=== PATIENT | male | born 1955 | race Caucasian/White ===

== ENCOUNTER 2017-11-04 20:46 | Emergency (ER) | payer MEDICAID ==
[~2017-11-04] VITALS: Ht 188 cm; Wt 84.1 kg
[2017-11-04 21:01] VITALS: BP 142/97
[2017-11-04] MEDS ORDERED: ASPI-12 PO (21:19)
[2017-11-04 21:24] LABS: BASOPHILS % (AUTO) 0.2 % (0-1); EOSINOPHILS # (AUTO) 0.2 X10'3 (0-0.9); EOSINOPHILS % (AUTO) 1.4 % (0-6); HEMOGLOBIN 14.7 g/dl (14.0-17.9); LYMPHOCYTES # (AUTO) 1.1 X10'3 (1.1-4.8); LYMPHOCYTES % (AUTO) 8.1 % (21-51); MEAN CORPUSCULAR HEMOGLOBIN 31.2 PG (27.0-31.0); MEAN CORPUSCULAR HGB CONC 34.1 % (33.0-36.5); MEAN CORPUSCULAR VOLUME 91.7 FL (78-98); MEAN PLATELET VOLUME 8.7 FL (7.4-10.4); MONOCYTES # (AUTO) 0.7 X10'3 (0-0.9); MONOCYTES % (AUTO) 4.8 % (2-12); NEUTROPHILS # (AUTO) 11.7 X10'3 (1.8-7.7); NEUTROPHILS % (AUTO) 85.5 % (42-75); PLATELET COUNT 234 X10'3 (140-440); RED BLOOD COUNT 4.69 X10'6 (4.70-6.10); RED CELL DISTRIBUTION WIDTH 14.4 % (11.5-14.5); WHITE BLOOD COUNT 13.7 X10'3 (4.5-11.0)
[2017-11-04 21:34] LABS: PROTHROMBIN TIME 10.2 SECONDS (9.0-12.0)
[2017-11-04 21:39] LABS: ALANINE AMINOTRANSFERASE 19 U/L (12-78); ALBUMIN 3.8 G/DL (3.4-5.0); ALBUMIN/GLOBULIN RATIO 1.1 (1.1-1.5); ALKALINE PHOSPHATASE 67 IU/L (46-116); ANION GAP 12 (8-16); ASPARTATE AMINO TRANSFERASE 13 U/L (10-37); BILIRUBIN,TOTAL 0.2 MG/DL (0.1-1.0); BLOOD UREA NITROGEN 20 MG/DL (7-18); BUN/CREATININE RATIO 16.7 (5.4-32.0); CHLORIDE 107 MMOL/L (99-107); GLUCOSE 127 MG/DL (70-104); POTASSIUM 3.7 MMOL/L (3.5-5.1); SODIUM 142 MMOL/L (135-145); TOTAL CARBON DIOXIDE 23.3 MMOL/L (24-32); TOTAL PROTEIN 7.4 G/DL (6.4-8.2); eGFR 62 ML/MIN
[2017-11-04 21:52] LABS: CLARITY,URINE TURBID (Clear); GLUCOSE, URINE NEGATIVE (Neg); KETONES,URINE NEGATIVE (Neg); LEUKOCYTE ESTERASE ,URINE TRACE (Neg); NITRITES, URINE POSITIVE (Neg); OCCULT BLOOD,URINE LARGE (Neg); PROTEIN,URINE 100 mg/dl (Neg)
[2017-11-04 22:01] LABS: COLOR,URINE DARK YELLOW (Yellow); UA COLLECTION TYPE CLN CATCH MIDSTREAM
[2017-11-04 22:09] LABS: BACTERIA,URINE 3+ /HPF (Neg); RBC,URINE TNTC /HPF (0-2); SQUAMOUS EPITHELIAL CELL,UR FEW /LPF (FEW)
[2017-11-04] MEDS ORDERED: CEPH500C2 PO (22:25)
== END 2017-11-04 22:35 | disposition home or self-care (01) ==
LOC: ER 20:47
DX: N39.0 Urinary tract infection, site not specified (principal); Z90.89 Acquired absence of other organs; Z88.0 Allergy status to penicillin; Z79.82 Long term (current) use of aspirin; Z79.899 Other long term (current) drug therapy
CPT/HCPCS: 36415; 80053; 81001; 85025; 85610; 87077; 87088; 87186; 99284

== ENCOUNTER 2017-11-14 18:15 | Emergency (ER) | payer MEDICAID ==
[~2017-11-14] VITALS: Ht 188 cm; Wt 77.3 kg
[~2017-11-14 18:15] MED LIST: ASPI-12 PO; CEPH500C2 PO
[2017-11-14 19:12] LABS: CLARITY,URINE CLOUDY (Clear); COLOR,URINE BROWN (Yellow)
[2017-11-14 19:21] LABS: UA COLLECTION TYPE CLN CATCH MIDSTREAM
[2017-11-14 19:24] LABS: BACTERIA,URINE FEW /HPF (Neg); MUCUS STRANDS MODERATE /LPF (Neg); RBC,URINE TNTC /HPF (0-2); SQUAMOUS EPITHELIAL CELL,UR FEW /LPF (FEW); WBC,URINE 20-30 /HPF (0-4)
[2017-11-14 19:51] VITALS: BP 143/76
== END 2017-11-14 20:24 | disposition home or self-care (01) ==
LOC: ER 18:16
DX: T19.1XXA Foreign body in bladder, initial encounter (principal); T19.0XXA Foreign body in urethra, initial encounter; Z90.89 Acquired absence of other organs; Z88.0 Allergy status to penicillin; Z87.440 Personal history of urinary (tract) infections; Y92.9 Unspecified place or not applicable
CPT/HCPCS: 81001; 87077; 87088; 87186; 99285

== ENCOUNTER 2017-11-16 10:34 | Emergency (ER) | payer MEDICAID ==
[~2017-11-16] VITALS: Ht 182.9 cm; Wt 76.5 kg
[2017-11-16 10:37] VITALS: BP 141/81
[2017-11-16 11:27] LABS: CLARITY,URINE TURBID (Clear); GLUCOSE, URINE NEGATIVE (Neg); KETONES,URINE TRACE mg/dl (Neg); LEUKOCYTE ESTERASE ,URINE SMALL (Neg); OCCULT BLOOD,URINE LARGE (Neg); PH,URINE 6.5 (4.8-8.0); PROTEIN,URINE 100 mg/dl (Neg)
[2017-11-16 11:28] LABS: UA COLLECTION TYPE CLN CATCH MIDSTREAM
[2017-11-16 11:29] LABS: COLOR,URINE GREEN (Yellow); NITRITES, URINE NEGATIVE (Neg)
[2017-11-16 11:34] LABS: MUCUS STRANDS MANY /LPF (Neg); SQUAMOUS EPITHELIAL CELL,UR FEW /LPF (FEW)
[2017-11-16 11:36] LABS: BACTERIA,URINE 1+ /HPF (Neg); RBC,URINE TNTC /HPF (0-2); WBC,URINE 30-50 /HPF (0-4)
[2017-11-16] MEDS ORDERED: ACET-812 PO (19:26)
== END 2017-11-16 12:29 | disposition home or self-care (01) ==
LOC: ER 10:34
DX: N39.0 Urinary tract infection, site not specified (principal); T19 Foreign body in genitourinary tract; R31.9 Hematuria, unspecified; Z90.89 Acquired absence of other organs; Z88.0 Allergy status to penicillin; Z79.899 Other long term (current) drug therapy; Y92.9 Unspecified place or not applicable
CPT/HCPCS: 81001; 87077; 87088; 87186; 99284

== ENCOUNTER 2017-11-16 14:10 | Observation (INO) | payer MEDICAID ==
[~2017-11-16] VITALS: Ht 188 cm; Wt 75.9 kg
[2017-11-16 14:48] LABS: ALANINE AMINOTRANSFERASE 20 U/L (12-78); ALBUMIN/GLOBULIN RATIO 1.2 (1.1-1.5); ALKALINE PHOSPHATASE 51 IU/L (46-116); ANION GAP 11 (8-16); ASPARTATE AMINO TRANSFERASE 18 U/L (10-37); BILIRUBIN,TOTAL 0.5 MG/DL (0.1-1.0); BLOOD UREA NITROGEN 20 MG/DL (7-18); BUN/CREATININE RATIO 16.3 (5.4-32.0); CALCIUM 8.8 MG/DL (8.5-10.1); CHLORIDE 106 MMOL/L (99-107); CREATININE 1.23 MG/DL (0.60-1.10); GLUCOSE 147 MG/DL (70-104); POTASSIUM 3.8 MMOL/L (3.5-5.1); SODIUM 141 MMOL/L (135-145); TOTAL CARBON DIOXIDE 23.7 MMOL/L (24-32); TOTAL PROTEIN 7.4 G/DL (6.4-8.2); eGFR 60 ML/MIN
[2017-11-16 14:52] LABS: BASOPHILS % (AUTO) 0.3 % (0-1); EOSINOPHILS # (AUTO) 0.1 X10'3 (0-0.9); EOSINOPHILS % (AUTO) 0.6 % (0-6); HEMATOCRIT 43.9 % (42.0-52.0); HEMOGLOBIN 14.4 g/dl (14.0-17.9); LYMPHOCYTES # (AUTO) 1.7 X10'3 (1.1-4.8); LYMPHOCYTES % (AUTO) 17.8 % (21-51); MEAN CORPUSCULAR HEMOGLOBIN 30.1 PG (27.0-31.0); MEAN CORPUSCULAR HGB CONC 32.7 % (33.0-36.5); MEAN PLATELET VOLUME 8.6 FL (7.4-10.4); MONOCYTES # (AUTO) 0.4 X10'3 (0-0.9); MONOCYTES % (AUTO) 4.1 % (2-12); NEUTROPHILS # (AUTO) 7.2 X10'3 (1.8-7.7); NEUTROPHILS % (AUTO) 77.2 % (42-75); PLATELET COUNT 252 X10'3 (140-440); RED BLOOD COUNT 4.77 X10'6 (4.70-6.10); RED CELL DISTRIBUTION WIDTH 13.9 % (11.5-14.5); WHITE BLOOD COUNT 9.4 X10'3 (4.5-11.0)
[2017-11-16 15:15] LABS: CLARITY,URINE TURBID (Clear); COLOR,URINE BROWN (Yellow); GLUCOSE, URINE NEGATIVE (Neg); KETONES,URINE TRACE mg/dl (Neg); LEUKOCYTE ESTERASE ,URINE MODERATE (Neg); OCCULT BLOOD,URINE LARGE (Neg); PROTEIN,URINE 100 mg/dl (Neg)
[2017-11-16 15:16] LABS: UA COLLECTION TYPE CLN CATCH MIDSTREAM
[2017-11-16 15:17] LABS: NITRITES, URINE NEGATIVE (Neg)
[2017-11-16 15:26] LABS: MUCUS STRANDS FEW /LPF (Neg); SQUAMOUS EPITHELIAL CELL,UR FEW /LPF (FEW); TRANSITIONAL EPI CELLS,URINE FEW /HPF
[2017-11-16 15:27] LABS: BACTERIA,URINE FEW /HPF (Neg); COARSE GRANULAR CAST 0-3 /LPF (NEGATIVE); RBC,URINE TNTC /HPF (0-2); WBC,URINE 50-100 /HPF (0-4)
[2017-11-16] MEDS ORDERED: ACET-812 PO (19:26)
[2017-11-16] MEDS ORDERED: ondansetron/PF 4mg/2ml inj IV PRN (20:20)
[2017-11-16] MEDS ORDERED: magnesium hydroxide 30ml (MOM) UD suspension PO PRN (20:20)
[2017-11-16] MEDS ORDERED: mag hydrox/Alum hydrox/simeth 30ml oral suspension PO PRN (20:20)
[2017-11-16] MEDS ORDERED: levoFLOXACIN-Levaquin 750MG/D5 150 ML IV STA (20:23)
[2017-11-16] MEDS: normal saline 1000ml 1,000 ML IV SCH (20:50)
[2017-11-16 21:25] VITALS: BP 128/82
[2017-11-17] VITALS (22 sets, daily range): BP systolic 107–136; BP diastolic 55–84
[2017-11-17 05:17] LABS: BASOPHILS # (AUTO) 0.1 X10'3 (0-0.2); BASOPHILS % (AUTO) 0.8 % (0-1); EOSINOPHILS # (AUTO) 0.2 X10'3 (0-0.9); EOSINOPHILS % (AUTO) 2.1 % (0-6); HEMATOCRIT 39.5 % (42.0-52.0); HEMOGLOBIN 13.3 g/dl (14.0-17.9); LYMPHOCYTES # (AUTO) 2.2 X10'3 (1.1-4.8); LYMPHOCYTES % (AUTO) 27.5 % (21-51); MEAN CORPUSCULAR HEMOGLOBIN 31.3 PG (27.0-31.0); MEAN CORPUSCULAR HGB CONC 33.8 % (33.0-36.5); MEAN CORPUSCULAR VOLUME 92.6 FL (78-98); MEAN PLATELET VOLUME 8.6 FL (7.4-10.4); MONOCYTES # (AUTO) 0.7 X10'3 (0-0.9); MONOCYTES % (AUTO) 8.9 % (2-12); NEUTROPHILS % (AUTO) 60.7 % (42-75); PLATELET COUNT 192 X10'3 (140-440); RED BLOOD COUNT 4.26 X10'6 (4.70-6.10); WHITE BLOOD COUNT 8.2 X10'3 (4.5-11.0)
[2017-11-17 05:26] LABS: ALANINE AMINOTRANSFERASE 16 U/L (12-78); ALBUMIN 3.4 G/DL (3.4-5.0); ALBUMIN/GLOBULIN RATIO 1.1 (1.1-1.5); ALKALINE PHOSPHATASE 44 IU/L (46-116); ANION GAP 8 (8-16); ASPARTATE AMINO TRANSFERASE 14 U/L (10-37); BILIRUBIN,TOTAL 0.5 MG/DL (0.1-1.0); BLOOD UREA NITROGEN 21 MG/DL (7-18); BUN/CREATININE RATIO 22.1 (5.4-32.0); CALCIUM 8.3 MG/DL (8.5-10.1); CHLORIDE 106 MMOL/L (99-107); CREATININE 0.95 MG/DL (0.60-1.10); GLUCOSE 87 MG/DL (70-104); POTASSIUM 3.9 MMOL/L (3.5-5.1); SODIUM 139 MMOL/L (135-145); TOTAL CARBON DIOXIDE 24.6 MMOL/L (24-32); TOTAL PROTEIN 6.4 G/DL (6.4-8.2); eGFR 81 ML/MIN
[2017-11-17] MEDS: normal saline 1000ml 1,000 ML IV SCH ×2 (07:02→16:20)
[2017-11-17 09:03] LABS: PRE OP INR 1.1 INR
[2017-11-17] MEDS ORDERED: sevoflurane 250ml liquid IH ONE (14:04)
[2017-11-17] MEDS ORDERED: LIDOcaine 2% (20mg/ml) 5ml vial ONE (14:06)
[2017-11-17] MEDS ORDERED: propofol inj 20 ML IV ONE (14:06)
[2017-11-17] MEDS ORDERED: fentaNYL/PF 50MCG/1 ML 2ML syringe ONE (14:06)
[2017-11-17] MEDS ORDERED: midazolam 2 mg/2 ml injection ONE (14:06)
[2017-11-17] MEDS ORDERED: dexamethasone sod phosphate 4mg/ml inj. ONE (14:15)
[2017-11-17] MEDS ORDERED: ondansetron/PF 4mg/2ml inj ONE (14:21)
[2017-11-17] MEDS ORDERED: glycopyrrolate 0.2mg/ml inj ONE (14:21)
[2017-11-17] MEDS ORDERED: ringers solution, lacted 1,000 ML IV SCH (14:26)
[2017-11-17] MEDS ORDERED: proCHLORperazine 10 MG/2 ml inj IV PRN (14:30)
[2017-11-17] MEDS ORDERED: ondansetron/PF 4mg/2ml inj IV PRN (14:30)
[2017-11-17] MEDS ORDERED: meperidine/PF 25mg/ml syringe IV PRN ×3 (14:30)
[2017-11-17] MEDS ORDERED: morphine 4 MG/ML inj SYRINge IV PRN ×2 (14:30)
[2017-11-17] MEDS: acetaminophen 325mg tablet PO PRN (15:53)
[2017-11-18] MEDS: normal saline 1000ml 1,000 ML IV SCH ×2 (02:20→09:34)
[2017-11-18 03:44] VITALS: BP 105/53
[2017-11-18 05:08] LABS: BASOPHILS % (AUTO) 0.1 % (0-1); EOSINOPHILS # (AUTO) 0.1 X10'3 (0-0.9); EOSINOPHILS % (AUTO) 0.9 % (0-6); HEMOGLOBIN 13.2 g/dl (14.0-17.9); LYMPHOCYTES # (AUTO) 0.6 X10'3 (1.1-4.8); LYMPHOCYTES % (AUTO) 5.2 % (21-51); MEAN CORPUSCULAR HEMOGLOBIN 31.4 PG (27.0-31.0); MEAN CORPUSCULAR HGB CONC 33.9 % (33.0-36.5); MEAN CORPUSCULAR VOLUME 92.7 FL (78-98); MEAN PLATELET VOLUME 8.9 FL (7.4-10.4); MONOCYTES # (AUTO) 0.5 X10'3 (0-0.9); NEUTROPHILS # (AUTO) 10.9 X10'3 (1.8-7.7); NEUTROPHILS % (AUTO) 89.8 % (42-75); PLATELET COUNT 190 X10'3 (140-440); RED BLOOD COUNT 4.21 X10'6 (4.70-6.10); RED CELL DISTRIBUTION WIDTH 14.6 % (11.5-14.5); WHITE BLOOD COUNT 12.1 X10'3 (4.5-11.0)
[2017-11-18 05:30] LABS: ALANINE AMINOTRANSFERASE 23 U/L (12-78); ALBUMIN 3.1 G/DL (3.4-5.0); ALBUMIN/GLOBULIN RATIO 1.1 (1.1-1.5); ALKALINE PHOSPHATASE 45 IU/L (46-116); ANION GAP 7 (8-16); ASPARTATE AMINO TRANSFERASE 16 U/L (10-37); BILIRUBIN,TOTAL 0.6 MG/DL (0.1-1.0); BLOOD UREA NITROGEN 15 MG/DL (7-18); BUN/CREATININE RATIO 16.1 (5.4-32.0); CALCIUM 8.5 MG/DL (8.5-10.1); CHLORIDE 105 MMOL/L (99-107); CREATININE 0.93 MG/DL (0.60-1.10); GLUCOSE 131 MG/DL (70-104); POTASSIUM 4.1 MMOL/L (3.5-5.1); SODIUM 136 MMOL/L (135-145); TOTAL CARBON DIOXIDE 23.9 MMOL/L (24-32); eGFR 83 ML/MIN
[2017-11-18 07:32] VITALS: BP 106/61
[2017-11-18] MEDS: acetaminophen 325mg tablet PO PRN (11:24)
[2017-11-18] MEDS ORDERED: LEVO500T2 PO (11:50)
== END 2017-11-18 17:10 | disposition home or self-care (01) ==
LOC: ER 14:11 → ED HOLD 20:20 → EDBEDREQ 20:58 → SUR 3N 21:06 → PACU 11-17 13:31 → SUR 3N 11-17 15:46
PROVIDERS: ADMIT Internal Medicine; ATTEND Family Medicine
DX: T19.1XXA Foreign body in bladder, initial encounter (principal); X58.XXXA Exposure to other specified factors, initial encounter; Y93.89 Activity, other specified; Y92.89 Other specified places as the place of occurrence of the external cause
CPT/HCPCS: 36415; 52310; 71045; 80053; 81001; 85025; 85610; 85730; 87070; 87077; 87088; 87186; 93005; 96365; 99285; A4355; C1758; G0378; J1100; J1956; J2001; J2250; J2405; J2704; J3010; J3490; J7030; J7120; A4402

== ENCOUNTER 2020-10-03 21:59 | Emergency (ER) | payer MEDICAID ==
[~2020-10-03] VITALS: Ht 188 cm; Wt 82.8 kg
[~2020-10-03 21:59] MED LIST changes: +ACET-812 PO; -ASPI-12 PO; -CEPH500C2 PO
[2020-10-03 22:10] VITALS: BP 150/92
[2020-10-04] MEDS ORDERED: SULF1TAB45 PO (14:58)
== END 2020-10-04 01:04 | disposition home or self-care (01) ==
LOC: ER 22:00
DX: T19.1XXA Foreign body in bladder, initial encounter (principal); R31.9 Hematuria, unspecified; Z87.440 Personal history of urinary (tract) infections; Z90.89 Acquired absence of other organs; Z98.890 Other specified postprocedural states; Z88.0 Allergy status to penicillin; Z79.899 Other long term (current) drug therapy; X58.XXXA Exposure to other specified factors, initial encounter; Y93.89 Activity, other specified; Y92.89 Other specified places as the place of occurrence of the external cause; Y99.8 Other external cause status
CPT/HCPCS: 76705; 99284

== ENCOUNTER 2020-10-04 12:40 | Emergency (ER) | payer MEDICAID ==
[~2020-10-04] VITALS: Ht 188 cm; Wt 84.1 kg
[2020-10-04 13:00] VITALS: BP 141/82
[2020-10-04] MEDS ORDERED: SULF1TAB45 PO (14:58)
== END 2020-10-04 15:05 | disposition home or self-care (01) ==
LOC: ER 12:41
DX: N39.0 Urinary tract infection, site not specified (principal); Z76.0 Encounter for issue of repeat prescription; Z88.0 Allergy status to penicillin
CPT/HCPCS: 99281

== ENCOUNTER 2020-10-09 10:35 | Emergency (ER) | payer MEDICAID ==
[~2020-10-09] VITALS: Ht 188 cm; Wt 81.1 kg
[~2020-10-09 10:35] MED LIST changes: +SULF1TAB45 PO
[2020-10-09 11:13] VITALS: BP 125/81
[2020-10-09 13:19] LABS: CLARITY,URINE CLOUDY (Clear); COLOR,URINE YELLOW (Yellow); GLUCOSE, URINE NEGATIVE (Neg); KETONES,URINE TRACE mg/dl (Neg); LEUKOCYTE ESTERASE ,URINE TRACE (Neg); NITRITES, URINE NEGATIVE (Neg); OCCULT BLOOD,URINE LARGE (Neg); PH,URINE 5.5 (4.8-8.0); PROTEIN,URINE 100 mg/dl (Neg)
[2020-10-09 13:21] LABS: UA COLLECTION TYPE CLN CATCH MIDSTREAM
[2020-10-09 13:30] LABS: BACTERIA,URINE 2+ /HPF (Neg); MUCUS STRANDS MODERATE /LPF (Neg); RBC,URINE TNTC /HPF (0-2); SQUAMOUS EPITHELIAL CELL,UR MODERATE /LPF (FEW); WBC,URINE TNTC /HPF (0-4)
== END 2020-10-09 13:51 | disposition home or self-care (01) ==
LOC: ER 10:36
DX: T19.1XXD Foreign body in bladder, subsequent encounter (principal); R31.9 Hematuria, unspecified; R30.0 Dysuria; Z87.440 Personal history of urinary (tract) infections; Z90.89 Acquired absence of other organs; Z98.890 Other specified postprocedural states; Z88.0 Allergy status to penicillin; Z79.2 Long term (current) use of antibiotics; Z79.899 Other long term (current) drug therapy; X58.XXXD Exposure to other specified factors, subsequent encounter
CPT/HCPCS: 81001; 87077; 87088; 87186; 99283

== ENCOUNTER 2020-10-09 13:54 | Emergency (ER) | payer MEDICAID ==
[~2020-10-09] VITALS: Ht 188 cm; Wt 84.1 kg
[2020-10-09 14:33] VITALS: BP 127/89
== END 2020-10-09 14:42 | disposition home or self-care (01) ==
LOC: ER 13:55
DX: Z02.89 Encounter for other administrative examinations (principal); R30.0 Dysuria; R31.9 Hematuria, unspecified; Z76.0 Encounter for issue of repeat prescription; Z87.440 Personal history of urinary (tract) infections; Z90.89 Acquired absence of other organs; Z88.0 Allergy status to penicillin; Z98.890 Other specified postprocedural states; Z79.2 Long term (current) use of antibiotics; Z79.899 Other long term (current) drug therapy
CPT/HCPCS: 99281

== ENCOUNTER 2022-12-30 09:32 | Emergency (ER) | payer MEDICARE, MEDICAID ==
[2022-12-30] VITALS (12 sets, daily range): BP systolic 115–162; BP diastolic 70–96; PULSE 53–76; RESP 12–17; TEMP 97.7; O2SAT 96–100
[~2022-12-30] VITALS: Ht 188 cm; Wt 77.1 kg
[~2022-12-30 09:32] MED LIST changes: -SULF1TAB45 PO
[2022-12-30 10:54] LABS: BILIRUBIN,URINE NEGATIVE (Neg); CLARITY,URINE TURBID (Clear); COLOR,URINE YELLOW (Yellow); GLUCOSE, URINE NEGATIVE (Neg); KETONES,URINE NEGATIVE (Neg); LEUKOCYTE ESTERASE ,URINE LARGE (Neg); NITRITES, URINE POSITIVE (Neg); OCCULT BLOOD,URINE LARGE (Neg); PH,URINE 6.5 (4.8-8.0); PROTEIN,URINE >=300 mg/dl (Neg); UROBILINOGEN,URINE 0.2 E.U/dL (0.2-1.0)
[2022-12-30 10:56] LABS: UA COLLECTION TYPE VOIDED
[2022-12-30 11:00] LABS: RBC,URINE 50-100 /HPF (0-2); WBC,URINE TNTC /HPF (0-4)
[2022-12-30 11:01] LABS: BACTERIA,URINE 4+ /HPF (Neg)
[2022-12-30 11:02] LABS: MUCUS STRANDS NONE SEEN /LPF (Neg); SQUAMOUS EPITHELIAL CELL,UR FEW /LPF (FEW)
[2022-12-30] MEDS ORDERED: levoFLOXACIN-Levaquin 750MG/D5 150 ML IV ONE (11:10)
[2022-12-30 11:30] LABS: BASOPHILS % (AUTO) 0.2 % (0-1); EOSINOPHILS % (AUTO) 0.2 % (0-6); HEMATOCRIT 42.6 % (42.0-52.0); HEMOGLOBIN 14.5 g/dl (14.0-17.9); LYMPHOCYTES # (AUTO) 1.2 X10'3 (1.1-4.8); LYMPHOCYTES % (AUTO) 7.7 % (21-51); MEAN CORPUSCULAR HEMOGLOBIN 31.4 PG (27.0-31.0); MEAN CORPUSCULAR HGB CONC 33.9 g/dL (33.0-36.5); MEAN CORPUSCULAR VOLUME 92.4 FL (78-98); MEAN PLATELET VOLUME 8.8 FL (7.4-10.4); MONOCYTES # (AUTO) 1.1 X10'3 (0-0.9); MONOCYTES % (AUTO) 6.8 % (2-12); NEUTROPHILS # (AUTO) 13.5 X10'3 (1.8-7.7); NEUTROPHILS % (AUTO) 85.1 % (42-75); PLATELET COUNT 192 X10'3 (140-440); RED BLOOD COUNT 4.61 X10'6 (4.70-6.10); RED CELL DISTRIBUTION WIDTH 13.9 % (11.5-14.5); WHITE BLOOD COUNT 15.8 X10'3 (4.5-11.0)
[2022-12-30 11:42] LABS: PROTHROMBIN TIME 10.7 SECONDS (9.0-12.0)
[2022-12-30 11:48] LABS: ALANINE AMINOTRANSFERASE 17 U/L (12-78); ALBUMIN 3.7 G/DL (3.4-5.0); ALBUMIN/GLOBULIN RATIO 1.1 (1.1-1.5); ALKALINE PHOSPHATASE 55 IU/L (46-116); ANION GAP 8 (8-16); ASPARTATE AMINO TRANSFERASE 16 U/L (10-37); BILIRUBIN,TOTAL 0.6 MG/DL (0.1-1.0); BLOOD UREA NITROGEN 20 MG/DL (7-18); CHLORIDE 106 MMOL/L (99-107); CREATININE 0.87 MG/DL (0.60-1.10); GLUCOSE 110 MG/DL (70-104); POTASSIUM 3.7 MMOL/L (3.5-5.1); SODIUM 141 MMOL/L (135-145); TOTAL CARBON DIOXIDE 27.5 MMOL/L (24-32); eCRCL 97 ML/MIN; eGFR 88 ML/MIN
[2022-12-30] MEDS ORDERED: iohexol 300 MG/1 ML 50ml polymer ONE (13:34)
[2022-12-30] MEDS ORDERED: LIDOcaine 2% jelly 6ml syringe ***for topical use only ONE (13:34)
[2022-12-30] MEDS ORDERED: ringers solution, lacted 1,000 ML IV SCH (14:23)
[2022-12-30] MEDS ORDERED: famotidine 20mg tablet PO ONE (14:23)
[2022-12-30] MEDS ORDERED: sevoflurane 250ml liquid IH ONE (16:05)
[2022-12-30] MEDS ORDERED: glycopyrrolate 0.2mg/ml inj ONE (16:05)
[2022-12-30] MEDS ORDERED: fentaNYL/PF 50MCG/1 ML 2ML syringe ONE (16:10)
[2022-12-30] MEDS ORDERED: midazolam 1 mg/ML 2ml injection ONE (16:11)
[2022-12-30] MEDS ORDERED: ondansetron/PF 4mg/2ml inj ONE (16:37)
[2022-12-30] MEDS ORDERED: dexamethasone sod phosphate 4mg/ml inj. ONE (16:37)
[2022-12-30] MEDS ORDERED: propofol inj 20 ML IV ONE (16:37)
--- NOTE | 2022-12-30 16:37 | NUR ---
Received from OR via [facility], accompanied by Anesthesiologist and report given by SHAHBAZ Anesthesiologist. PATIENT WAKING UP, NO S/S OF PAIN, V/S WNL, SCD ON, 20G TO RIGHT AC. NO S/S OF BLEEDING IN PENIS AREA. Addendum: 12/30/22 at 1649 by Aj Murray RN Amended: Links added.
[2022-12-30] MEDS ORDERED: LEVO-65 PO (17:35)
--- NOTE | 2022-12-30 17:55 | NUR ---
NOTIFIED MD AFTER PERFORMING BLADDER SCANNER THAT PATIENT HAS 315 CC OF URINE. MD INSTRUCTED TO INSERT NGUYEN AND FOLLOW UP WITH OFFICE ON THURSDAY OR THURSDAY TO DISCONTINUE NGUYEN CATHETER. PATIENT SUGGESTED TO ATTEMPT TO URINATE AND MD AGREED TO ALLOW PATIENT TO URINATE.
--- NOTE | 2022-12-30 18:35 | NUR ---
PERFORMED BLADDER SCANNER AND 305 CC OF URINE NOTED. PATIENT STILL WANT TO ATTEMPT URINATING.
--- NOTE | 2022-12-30 19:02 | NUR ---
PERFORMED BLADDER SCANNER AND 278 CC OF URINE NOTED. PATIENT AGREED TO GO HOME. Addendum: 12/30/22 at 1903 by Aj Murray RN Amended: Links added.
--- NOTE | 2022-12-30 19:07 | NUR ---
ALL DISCHARGE CRITERIA HAS BEEN MET. VSS, PAIN AT A TOLERABLE LEVEL, VOIDING AND ABLE TO SAFELY AMBULATE AND TRANSFER SELF. IV TAKEN OUT WITHOUT ANY COMPLICATIONS. ALL DISCHARGE INSTRUCTIONS COVERED WITH PATIENT AND ALL QUESTIONS ANSWERED. PATIENT TAKEN OUT VIA WHEELCHAIR WITH ALL BELONGINGS TO PERSONAL VEHICLE WHERE FRIEND DROVE PATIENT HOME. Addendum: 12/30/22 at 1914 by Aj Murray RN Amended: Links added.
== END 2022-12-30 19:07 | disposition home or self-care (01) ==
LOC: ER 09:33
DX: T19.0XXA Foreign body in urethra, initial encounter (principal); X58.XXXA Exposure to other specified factors, initial encounter; Y93.89 Activity, other specified; Y92.89 Other specified places as the place of occurrence of the external cause; Y99.8 Other external cause status
CPT/HCPCS: 36415; 52310; 71045; 80053; 81001; 85025; 85610; 87077; 87088; 87186; 93005; 96361; 96374; 99285; J1100; J1956; J2250; J2405; J2704; J3010; J3490; J7120; Q9967; Z7506; Z7512; A4618

== ENCOUNTER 2023-03-04 15:58 | Emergency (ER) | payer MEDICARE, MEDICAID ==
[~2023-03-04] VITALS: Ht 188 cm; Wt 75.0 kg
[2023-03-04] MEDS ORDERED: DOXYCYCLINE 100MG CAPSULE PO STA (19:17)
[2023-03-04] MEDS ORDERED: TETanus/Pertussis (Acell)/Diphther VAC/PF (Tdap-Adult) 0.5ml syringe IMVAC ONE (19:20)
[2023-03-04] MEDS ORDERED: DOXY-1 PO (21:22)
[2023-03-04 21:37] VITALS: BP 143/102; PULSE 72; RESP 16; TEMP 98.1; O2SAT 98
--- NOTE | 2023-03-04 22:27 | NUR ---
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
== END 2023-03-04 21:40 | disposition home or self-care (01) ==
LOC: ER 15:59
DX: S61.234A Puncture wound without foreign body of right ring finger without damage to nail, initial encounter (principal); X58.XXXA Exposure to other specified factors, initial encounter; Y93.89 Activity, other specified; Y92.89 Other specified places as the place of occurrence of the external cause; Y99.8 Other external cause status
CPT/HCPCS: 73140; 90471; 90715; 99283